=== PATIENT | female | born 1995 | race African-American/Black ===

== ENCOUNTER 2016-07-24 13:56 | Day surgery (SDC) | payer OTHER ==
[~2016-07-24] VITALS: Ht 182.9 cm; Wt 77.0 kg
[2016-07-24 14:57] VITALS: BP 100/67
[2016-07-24] MEDS ORDERED: LACTATED RINGERS 1,000 ML IV SCH (14:58)
[2016-07-24] MEDS ORDERED: [UNRECOGNIZED DRUG - REMARK] (15:00)
[2016-07-24] MEDS ORDERED: FENTANYL PF 100 MCG/2ML ONE (15:24)
[2016-07-24] MEDS ORDERED: MIDAZOLAM 1 MG/ML, 2ML ONE (15:24)
[2016-07-24] MEDS ORDERED: PLEASE ENTER ALLERGIES MC SCH ×2 (15:30)
[2016-07-24] MEDS ORDERED: SILVER NITRATE STICK TP ONE (15:59)
[2016-07-24] MEDS ORDERED: MISOPROSTOL 200 MCG TABLET ONE (15:59)
[2016-07-24] MEDS ORDERED: OXYTOCIN 10 UNITS/ML, 1ML ONE (15:59)
[2016-07-24] MEDS ORDERED: MEPERIDINE/PF 25MG/0.5ML IVPush PRN (16:00)
[2016-07-24] MEDS ORDERED: METOCLOPRAMIDE 5 MG/ML, 2ML IV PRN (16:00)
[2016-07-24] MEDS ORDERED: ACETAMINOPHEN 325 MG TABLET PO PRN (16:00)
[2016-07-24] MEDS ORDERED: OXYcodone 5 MG/5 ML ORAL.SOL UDC PO PRN (16:00)
[2016-07-24] MEDS ORDERED: HYDROmorphone 1 MG/ML, 1ML IV PRN (16:00)
[2016-07-24] MEDS ORDERED: FENTANYL PF 100 MCG/2ML IV PRN (16:00)
[2016-07-24] MEDS ORDERED: PROMETHAZINE 25 MG/ML, 1ML IV PRN (16:00)
[2016-07-24] MEDS ORDERED: ONDANSETRON 2MG/ML, 2ML IVPush PRN (16:00)
[2016-07-24] MEDS ORDERED: DEXAMETHASONE 4 MG/ML, 5ML ONE (16:12)
[2016-07-24] MEDS ORDERED: KETOROLAC 30 MG/1 ML ONE (16:12)
[2016-07-24] MEDS ORDERED: ONDANSETRON 2MG/ML, 2ML ONE (16:12)
[2016-07-24] MEDS ORDERED: PROPOFOL 10 MG/ML, 20ML ONE (16:12)
== END 2016-07-24 20:05 | disposition home or self-care (01) ==
LOC: OR 13:56 → OUT 20:05
PROVIDERS: ATTEND Specialist
DX: O02.1 Missed abortion (principal); Z3A.08 8 weeks gestation of pregnancy
CPT/HCPCS: 36415; 59820; 85025; 86900; J1100; J1885; J2250; J2405; J2590; J2704; J3010; J7120; 88305